=== PATIENT | female | born 1975 | race Caucasian/White ===

== ENCOUNTER 2017-10-31 08:03 | Day surgery (SDC) | payer OTHER ==
[~2017-10-31 08:03] MED LIST: BUPIVACAINE 0.5% 30 ML SDV ONE; HEPARIN 1000 UNIT/1 ML MDV ONE; ceFAZolin 1 GM/5 ML SYR ONE; cefOXitin SODIUM 2 GM in D5W 100 ML IV ONE
--- NOTE | 2017-10-31 08:14 | PDHPUP ---
History & Physical Update H&P update statement: This history and physical update is based on an assessment of the patient which was completed after admission or registration (within 24 hours), but prior to the surgery/procedure.
[2017-10-31 09:04] LABS: ALANINE AMINOTRANSFERASE 23 IU/L (9-52); ALBUMIN 4.1 g/dL (3.5-5.0); ALKALINE PHOSPHATASE 54 IU/L (38-126); AMYLASE 52 IU/L (30-110); ASPARTATE AMINOTRANSFERASE 24 IU/L (14-46); BILIRUBIN,TOTAL 1.1 mg/dL (0.1-1.4); BILIRUBIN-CONJUGATED 0.2 mg/dL (0.0-0.5); BILIRUBIN-UNCONJUGATED 0.9 mg/dL (0.0-1.1); TOTAL PROTEIN 6.9 g/dL (6.3-8.2)
[2017-10-31] MEDS ORDERED: HEPARIN 1000 UNIT/1 ML MDV ONE ×2 (09:13→09:14)
[2017-10-31] MEDS ORDERED: ceFAZolin 1 GM/5 ML SYR ONE (09:13)
[2017-10-31] MEDS ORDERED: BUPIVACAINE 0.5% 30 ML SDV ONE (09:13)
--- NOTE | 2017-10-31 09:29 | PDANEPAE ---
ANE History of Present Illness 42 year old female presents for laparoscopic cholecystectomy. ANE Past Medical History - Cardiovascular History Hx Hypertension: No Hx Arrhythmias: No Hx Chest Pain: No Hx Coronary Artery / Peripheral Vascular Disease: No Hx CHF / Valvular Disease: No Hx Palpitations: No - Pulmonary History Hx COPD: No Hx Asthma/Reactive Airway Disease: No Hx Recent Upper Respiratory Infection: No Hx Oxygen in Use at Home: No Hx Sleep Apnea: No Sleep Apnea Screening Result - Last Documented: Negative - Neurologic History Hx Cerebrovascular Accident: No Hx Seizures: No Hx Dementia: No - Endocrine History Hx Diabetes: No Obesity: no - Renal History Hx Renal Disorders: No - Liver History Hx Hepatic Disorders: No - Neurological & Psychiatric Hx Hx Neurological and Psychiatric Disorders: Yes Neurological / Psychiatric History Comment: anxiety. depression - Cancer History Hx Cancer: No - Congenital Disorder History Hx Congenital Disorders: No - GI History Hx Gastrointestinal Disorders: No - Other Health History Other Health History: none - Chronic Pain History Chronic Pain: No - Surgical History Prior Surgeries: wisdom teeth. ganglion cyst removed. . tonsillectomy. excess breast tissue removed. colonoscopy and egd ANE Review of Systems Review of systems is: negative Review of Systems: - Exercise capacity Exercise capacity: >=4 METS METS (RN): 4 METS ANE Patient History - Allergies Allergies/Adverse Reactions: guaifenesin Allergy (Severe, Verified 10/30/17 13:42) cp azathioprine [From Imuran] Allergy (Verified 10/30/17 13:42) Vomiting chlorhexidine Allergy (Verified 10/30/17 13:42) Rash adhesive tape Allergy (Intermediate, Uncoded 10/30/17 13:42) Rash - Home Medications Home medications: home medication list seen and reviewed Home Medications: Adalimumab [Humira] 40 mg SQ Q14D 10/30/17 [Last Taken 10/15/17] Calcium Carbonate [Oyster Shell Calcium 500 mg (*)] 500 mg PO DAILY 10/30/17 [ Last Taken 10/30/17] Cholecalciferol Vit D3 [Vitamin D3 (*)] 1,000 units PO DAILY 10/30/17 [Last Taken 10/30/17] Ciprofloxacin HCl [Ciprofloxacin] 500 mg PO BID 10/30/17 [Last Taken 10/30/17] DULoxetine [Cymbalta 30 MG (*)] 30 mg PO HS 10/30/17 [Last Taken Unknown] DULoxetine [Cymbalta 60 MG (*)] 60 mg PO HS 10/30/17 [Last Taken 10/30/17] Dapsone [Dapsone 100 mg (*)] 50 mg PO HS 10/30/17 [Last Taken 10/30/17] Ferrous Sulfate [Ferrous Sulf 325 MG (*)] 325 mg PO DAILY 10/30/17 [Last Taken 10/30/17] Herbals/Supplements -Info Only 1 ea PO DAILY 10/30/17 [Last Taken 10/30/17] - NPO status NPO Status: no food or drink >8 hours NPO Since - Liquids (Date): 10/30/17 NPO Since - Liquids (Time): 19:00 NPO Since - Solids (Date): 10/31/17 NPO Since - Solids (Time): 19:00 - Anes Hx Anes Hx: no prior problems - Smoking Hx Smoking Status: Never smoked Marijuana use: No - Alcohol Use Alcohol Use: None - Family Anes Hx Family Anes Hx: neg - N/A Family Hx Anesthesia Complications: none ANE Labs/Vital Signs - Vital Signs Vital Signs: reviewed preoperatively; see RN documention for details Blood Pressure: 103/68 Heart Rate: 97 Respiratory Rate: 14 O2 Sat (%): 93 Height: 165.1 cm Weight: 61.235 kg ANE Physical Exam - Airway Neck exam: FROM Mallampati Score: Class 1 Mouth exam: normal dental/mouth exam - Pulmonary Pulmonary: no respiratory distress - Cardiovascular Cardiovascular: regular rate and rhythym - ASA Status ASA Status: III (ASA 3 because 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
[2017-10-31] MEDS ORDERED: MIDAZOLAM 2 MG/2 ML VIAL ONE (10:14)
[2017-10-31] MEDS ORDERED: fentaNYL 100 MCG/2 ML INJ ONE ×3 (10:18→12:16)
[2017-10-31] MEDS ORDERED: PROPOFOL 200 MG/20 ML VIAL ONE (10:18)
[2017-10-31] MEDS ORDERED: LIDOCAINE 2% 5 ML SDV ONE (10:19)
[2017-10-31] MEDS ORDERED: ROCURONIUM 50 MG/5 ML VIAL ONE (10:19)
[2017-10-31] MEDS ORDERED: ONDANSETRON 4 MG/2 ML VIAL ONE (10:54)
[2017-10-31] MEDS ORDERED: DEXAMETHASONE 4 MG/ML VIAL ONE (10:54)
[2017-10-31] MEDS ORDERED: PHENYLEPHRINE HCL 100 MCG/ML SYR ONE (11:02)
[2017-10-31] MEDS ORDERED: LR 500 ML IV PRN (11:03)
[2017-10-31] MEDS ORDERED: HYDROCODONE/APAP 5/325 TAB PO PRN (11:03)
[2017-10-31] MEDS ORDERED: NALOXONE HCL 0.4 MG/ML INJ IVP PRN (11:03)
[2017-10-31] MEDS ORDERED: DEXAMETHASONE 4 MG/ML VIAL IVP PRN (11:03)
[2017-10-31] MEDS ORDERED: KETOROLAC 30 MG/1 ML SDV ONE (11:16)
[2017-10-31] MEDS ORDERED: MIDAZOLAM 2 MG/2 ML VIAL IVP ONE ×2 (11:24→11:45)
[2017-10-31] MEDS ORDERED: HYDROmorphONE/DILAUDID 1 MG/ML INJ ONE (11:40)
[2017-10-31] MEDS: HYDROmorphONE/DILAUDID 1 MG/ML INJ IVP PRN ×3 (11:43→12:13)
[2017-10-31] MEDS: fentaNYL 100 MCG/2 ML INJ IVP PRN ×4 (11:43→12:21)
[2017-10-31 11:54] VITALS: PULSE 90
[2017-10-31] MEDS ORDERED: HYDROCODONE/APAP 5/325 TAB ONE (12:16)
[2017-10-31 12:20] VITALS: RESP 16; TEMP 97.7
[2017-10-31 13:19] VITALS: BP 118/76; O2SAT 91
--- NOTE | 2017-10-31 16:35 | POSTANESTH ---
Post Anesthetic Evaluation Cardiovascular Status: Normal, Stable, Similar to Pre-Op Cond Respiratory Status: Normal, Stable, Similar to Pre-op Cond. Level of Consciousness/Mental Status: Can Participate in Eval, Alert and Oriented Pain Control: Adequate, Prn Tx Ordered Nausea/Vomiting Control: Adequate, Prn Tx Ordered Complications Possibly Related to Anesthesia: None Noted
--- NOTE | 2017-11-02 06:30 | GOP ---
[f rep st] OPERATIVE REPORT DATE OF OPERATION: 10/31/2017 SURGEON: Freddy Conway MD PREOPERATIVE DIAGNOSIS: Symptomatic cholelithiasis and cholecystitis. POSTOPERATIVE DIAGNOSIS: Symptomatic cholelithiasis and cholecystitis. PROCEDURE PERFORMED: Laparoscopic cholecystectomy. FINDINGS: Patient was found to have a distended gallbladder but not badly inflamed. She had markedl y large and multiple stones. Ducts were relatively small. Cystic duct and cystic artery were multip ly hemoclipped and divided with care to avoid injury to the common bile duct, and the peritoneum of t he gallbladder was incised. The gallbladder was dissected free in the bed and hepatic fossa and extr acted through the upper midline port site. Hemostasis was assured. Trocars were removed under direc t vision. Trocar sites were closed with 0 Vicryl for the fascia, 4-0 Monocryl subcuticular stitch fo r the skin. All layers infiltrated with 0.5% Marcaine. She was taken to the recovery room in good c ondition. DESCRIPTION OF PROCEDURE: COMPLICATIONS: None. Copy requested to: Alin Ramon MD /[id number]/MODL
== END 2017-10-31 13:35 | disposition home or self-care (01) ==
LOC: FSGY 08:03 → EDSTATUS 09:45 → UNDODISOB 13:35 → FSGY 13:35
PROVIDERS: ATTEND Surgery
PROC: 0FT44ZZ Resection of Gallbladder, Percutaneous Endoscopic Approach (ICD-10-PCS; principal; 2017-10-31 09:45)
DX: K80.20 Calculus of gallbladder without cholecystitis without obstruction (principal); D69.0 Allergic purpura; F32.9 Major depressive disorder, single episode, unspecified; F41.9 Anxiety disorder, unspecified
CPT/HCPCS: J0694; J1100; J1170; J1885; J2250; J2370; J2405; J2704; J3010